=== PATIENT | male | born 1985 | race Two or more races ===

== ENCOUNTER 2022-03-29 10:05 | Emergency (ER) | payer MEDICAID ==
[~2022-03-29] VITALS: Ht 182.9 cm; Wt 139.8 kg
[2022-03-29] MEDS ORDERED: ACETAMINOPHEN 325 MG TAB PO ONE (10:15)
[2022-03-29] MEDS ORDERED: ASPirin 325 MG TAB PO ONE (11:00)
[2022-03-29 11:11] LABS: INR 0.97 (0.9-1.15); Partial Thromboplastin Time 29.9 sec (24.6-33.4)
[2022-03-29 11:12] LABS: Urine Bacteria NONE SEEN /hpf (None Seen); Urine Blood Negative /uL (Negative); Urine Specific Gravity 1.017 (1.001-1.035); Urine WBC 1 /hpf (0 - 3)
[2022-03-29 12:11] VITALS: BP 124/78
[2022-03-29 14:30] LABS: Albumin 3.7 g/dL (3.4-5.0); BUN/Creatinine Ratio 11.8; Bilirubin, Total 0.3 mg/dL (0.2-1.0); Calcium 8.9 mg/dL (8.5-10.1); Magnesium 2.3 mg/dL (1.6-2.6); Potassium 4.2 mmol/L (3.5-5.1); Total Protein 8.4 g/dL (6.4-8.2)
== END 2022-03-29 16:01 | disposition home or self-care (01) ==
LOC: ER 10:05
DX: R07.89 Other chest pain (principal); Z20.822 Contact with and (suspected) exposure to COVID-19
CPT/HCPCS: 36415; 71045; 80053; 81001; 83735; 84484; 85379; 85610; 85730; 87426; 93005